=== PATIENT | female | born 1995 | race Caucasian/White ===

== ENCOUNTER 2020-04-09 17:39 | Emergency (ER) | payer OTHER ==
[~2020-04-09] VITALS: Ht 167.6 cm; Wt 63.6 kg
[2020-04-09 17:48] VITALS: TEMP 98.9
[2020-04-09 18:17] LABS: PH 6 (5-8); SQUAMOUS EPITHELIAL 0-2 /hpf; URINE APPEARANCE Clear; URINE BACTERIA Rare /hpf; URINE BILIRUBIN Negative (NEGATIVE); URINE BLOOD 1+ (NEGATIVE); URINE COLOR Straw; URINE GLUCOSE Negative (NEGATIVE); URINE KETONE 1+ (NEGATIVE); URINE LEUKOCYTE ESTERASE Negative (NEGATIVE); URINE NITRATE Negative (NEGATIVE); URINE PROTEIN(semi-quant) Negative (NEGATIVE); URINE RBC 0-2 /hpf; URINE UROBILINOGEN Negative (NEGATIVE); URINE WBC None Seen /hpf
[2020-04-09 18:18] LABS: COLLECTION METHOD CLEAN CATCH
[2020-04-09 18:39] LABS: BASO % 0.4 % (0.0-2.0); EOS # 0.1 (0.0-0.7); GRAN # 6.3 (1.4-6.5); GRAN % 63.5 % (42.2-75.2); HEMATOCRIT 41.1 % (37.0-47.0); HEMOGLOBIN 14.1 g/dl (12.5-16.0); LYMPH # 2.8 (1.2-3.4); LYMPH % 28.1 % (20.0-51.0); MEAN CELL VOLUME 92 fl (80.0-100.0); MEAN CORPUSCULAR HEMOGLOBIN 31 pg (27.0-31.0); MEAN CORPUSCULAR HGB CONC 34 g/dl (33.0-37.0); MEAN PLATELET VOLUME 9.8 fl (7.4-10.4); MONO # 0.7 (0.1-0.6); MONO % 6.8 % (1.7-9.3); PLATELET COUNT 258 K/mm3 (130-400); RED BLOOD COUNT 4.49 M/mm3 (4.10-5.30); REDCELL DISTRIBUTION WIDTH-CV 11.4 % (11.5-14.5)
[2020-04-09 18:50] LABS: BILIRUBIN,TOTAL 0.4 mg/dL (0.0-1.0); C-REACTIVE PROTEIN 0.8 mg/dL (0.0-0.9); CALCIUM 9.8 mg/dL (8.4-10.2); CREATININE, serum 0.94 (0.52-1.25); POTASSIUM 3.7 mmol/L (3.4-5.0); TOTAL PROTEIN 8.5 gm/dL (6.4-8.2)
[2020-04-09 21:45] VITALS: BP 116/70; PULSE 78
== END 2020-04-09 21:40 | disposition home or self-care (01) ==
LOC: COL.ER 17:39
PROVIDERS: Nurse Practitioner Primary Care
DX: R10.31 Right lower quadrant pain (principal); Z32.02 Encounter for pregnancy test, result negative
CPT/HCPCS: Q9967

== ENCOUNTER → 2023-11-16 | Outpatient (CLI) | payer OTHER | LOC: DIA.ED 08:37 | DX: O24.419 Gestational diabetes mellitus in pregnancy, unspecified control (principal) ==

== ENCOUNTER 2024-02-23 12:13 | Inpatient (IN) | payer OTHER ==
[~2024-02-23] VITALS: Ht 167.6 cm; Wt 72.7 kg
[2024-02-23] VITALS (40 sets, daily range): BP systolic 12–147; BP diastolic 57–92; PULSE 64–115; TEMP 97.7–98.4
[2024-02-23] MEDS ORDERED: LR 1,000 ML IV SCH (12:45)
[2024-02-23] MEDS ORDERED: LR & Oxytocin 500 ML IV SCH (12:45)
[2024-02-23] MEDS ORDERED: ROPivacaine PF 0.2% 200 ML IV ONE (12:57)
[2024-02-23] MEDS ORDERED: Lidocaine PF 2% (20 MG/ML) 5 ML VIAL ONE (13:06)
[2024-02-23 13:13] LABS: BASO % 0.4 % (0.0-2.0); EOS # 0.1 K/mm3 (0.0-0.7); EOS % 1.3 % (0.0-4.0); GRAN # 7.2 K/mm3 (1.4-6.5); GRAN % 66.6 % (42.2-75.2); HEMOGLOBIN 13.2 g/dl (12.5-16.0); LYMPH # 2.3 K/mm3 (1.2-3.4); LYMPH % 21.4 % (20.0-51.0); MEAN CELL VOLUME 96 fl (80.0-100.0); MEAN CORPUSCULAR HEMOGLOBIN 34 pg (27-31); MEAN CORPUSCULAR HGB CONC 36 g/dl (33.0-37.0); MEAN PLATELET VOLUME 11.3 fl (7.4-10.4); MONO # 1.1 K/mm3 (0.1-0.6); MONO % 9.7 % (1.7-9.3); PLATELET COUNT 178 K/mm3 (130-400); RED BLOOD COUNT 3.84 M/mm3 (4.10-5.30); REDCELL DISTRIBUTION WIDTH-CV 12.5 % (11.5-14.5)
[2024-02-23 13:14] LABS: HEMATOCRIT 36.8 % (37.0-47.0)
--- NOTE | 2024-02-23 13:41 | NUR ---
1220 PATIENT HERE FOR COMPLAINTS OF LEAKING FLUID SINCE 11 AM THIS MORNING. EFM ON FHT 130 BABY VERY ACTIVE. CONTRACTIONS 2 MIN APART AND PALPATE FRIM. PATIENT HAS TO BREATH THROUGH EACH CONTRACTIONS. ASSESSMENT COMPLETED, SVE /-1 AMNIOTRACE POSITIVE WITH A GUSH OF CLEAR FLUID NOTED. DR DIAZ CALLED AND ORDERS TO ADMIT PATIENT FOR SROM/LABOR.
--- NOTE | 2024-02-23 13:44 | NUR ---
1300 NOAH FOSTER CALLED TO COME FOR EPIDURAL PLACEMENT.
[2024-02-23] MEDS ORDERED: Naloxone 0.4 MG/ML VIAL IV PRN ×2 (13:45→21:45)
[2024-02-23] MEDS ORDERED: Ondansetron 4 MG/2 ML VIAL IV PRN (13:45)
[2024-02-23] MEDS ORDERED: ePHEDrine 50 MG/10 ML VIAL IV PRN (13:45)
[2024-02-23] MEDS ORDERED: diphenhydrAMINE 25 MG CAP PO PRN (13:45)
[2024-02-23] MEDS ORDERED: diphenhydrAMINE 50 MG/ML 1 ML VIAL IV PRN (13:45)
--- NOTE | 2024-02-23 13:46 | NUR ---
1310 PATIENT SITS UP ON EDGE OF BED FOR EPIDURAL PLACEMENT AT THIS TIME. GETTER FILLER AT BEDSIDE AND TALKS WITH PATIENT AND . PATIENT TOLERATES PLACEMENT WELL, SEE ALL GETTER FILLER NOTES FOR QUESTIONS AND VITAL SIGNS
--- NOTE | 2024-02-23 14:18 | NUR ---
1405 3 POSITION CHANGES WITH TWO EPIDURAL BOLUS DOSES ATTEMPTED. PATIENT REPORTS NONADEQUATE PAIN RELIEF. PATIENT STATUS DISCUSSED WITH KRISTIN GARCIA ON UNIT. OPTIONS DISCUSSED WITH PATIENT.URBAN REDEVELOPMENT SPECIALIST AND PATIENT IN AGREEANCE TO REPLACE EPIDRUAL 1410 KRISTIN COY AT BEDSIDE. EPIDURAL CATHETER REMOVED. PATIENT SETUP FOR NEW EPIDURAL. 1418 SINGLE SHOT. 1425 PATIENT ASSISTED BACK TO WEDGE LEFT POSITION IN BED. 1440 PATIENT REPORTS INCREASED PAIN RELIEF AND THAT LABOR DISCOMFORT IS NOW TOLERABLE.
--- NOTE | 2024-02-23 20:18 | NUR ---
DR DIAZ INFORMED PT IS COMPLETE AND +2 STATION.PT CAN START PUSHING NOW. 2020 ALBERTS CATH REMOVED. PT INSTRUCTED ON PUSHING.
--- NOTE | 2024-02-23 20:20 | NUR ---
PT PUSHING WITH CONTRACTIONS. 2047 DR ELLIS RAMIREZ IN ROOM FOR DELIVERY. 2049 NURSERY NURSER NOAH MCCONNELL.
[2024-02-23] MEDS ORDERED: traZODone 50 MG TAB PO PRN (21:00)
--- NOTE | 2024-02-23 21:10 | NUR ---
VAG DLEIVERY MALE . BABY PLACED ON MOMS ABD, DRIED AND STIMULATED. 2113 PLACENTA DELIVERED INTACT. PITOCIN STARTED AT 333 MU/MIN VIA PUMP. DR ELLIS RAMIREZ REPAIRING 2 DEGREE LACERATION. [address] TO PERINEUM.
[2024-02-23] MEDS ORDERED: Witch Hazel 50% Pads Bulk TUB TP PRN (21:45)
[2024-02-23] MEDS ORDERED: Magnes Hydrox (MOM) 80 MG/ML 30 ML CUP PO PRN (21:45)
[2024-02-23] MEDS ORDERED: Measles/Mumps/Rubella Virus Vaccine Live w Diluent 0.5 ML VIAL SQ SCH (21:45)
[2024-02-23] MEDS ORDERED: Ibuprofen 800 MG TAB PO SCH (21:45)
[2024-02-23] MEDS ORDERED: Loratadine 10 MG TAB PO PRN (21:45)
[2024-02-23] MEDS ORDERED: Tdap Vaccine 0.5 ML SYRINGE IM SCH (21:45)
[2024-02-23] MEDS ORDERED: Phenylephrine/Mineral Oil/Petrolatum 57 GM TUBE RC PRN (21:45)
[2024-02-23] MEDS ORDERED: Acetaminophen 500 MG TAB PO SCH (21:45)
[2024-02-23] MEDS ORDERED: Mag/Al Hydrox/Simeth Susp 30 ML CUP PO PRN (21:45)
[2024-02-23] MEDS ORDERED: oxyCODONE 5 MG TAB PO PRN (22:00)
[2024-02-23] MEDS ORDERED: Morphine 4 MG/ML VIAL IV PRN (22:00)
[2024-02-24 02:45] VITALS: BP 120/68; PULSE 78; TEMP 98.3
--- NOTE | 2024-02-24 03:00 | NUR ---
PT AMB TO BR TO VOID. PERICARE DONE. PANTIES ON PAD AND GOWN CHANGED.TRANSFERED TO ROOM 208 VIA WHEEL CHAIR. AND BABY FOLLOWED. REPORT GIVEN TO MARGARITA MANRIQUE
[2024-02-24 04:54] VITALS: BP 124/82; PULSE 79; TEMP 98.2
[2024-02-24 07:15] VITALS: BP 120/81; PULSE 91
[2024-02-24] MEDS ORDERED: Sennosides/Docusate 8.6-50 MG TAB PO SCH (08:00)
--- NOTE | 2024-02-24 09:28 | NUR ---
Initial visit; Nurse tending mom, Integrated Marketing Manager offered congratulations and God's blessings to parents and thanked them [facility] and let them know Integrated Marketing Manager is available to them.
[2024-02-24] MEDS ORDERED: IBU800 M1 PO (13:29)
[2024-02-24 17:47] VITALS: BP 119/84; PULSE 85
[2024-02-24] MEDS ORDERED: Rho(D) Imm Globulin 1,500 UNITS (300 MCG)/2 ML SYRINGE IV\\IM SCH (18:00)
[2024-02-24 21:00] VITALS: BP 111/64; PULSE 74; TEMP 97.8
[2024-02-25 09:00] VITALS: BP 131/80; PULSE 100; TEMP 98.1
--- NOTE | 2024-02-25 10:30 | NUR ---
DISCHARGE TEACHING COMPLETED. EDUCATED ON FOLLOW UP APPOINTMENT AND PRESCRIPTION. QUESTIONS INVITED AND ANSWERED.
== END 2024-02-25 12:00 | disposition home or self-care (01) | DRG 807 ==
LOC: LDRO 12:13 → OB 12:44 → LDR 12:44 → OB 02-24 01:54
PROVIDERS: ADMIT Student in an Organized Health Care Education/Training Program
PROC: 10E0XZZ Delivery of Products of Conception, External Approach (ICD-10-PCS; principal; 2024-02-23)
PROC: 0KQM0ZZ Repair Perineum Muscle, Open Approach (ICD-10-PCS; 2024-02-23)
PROC: 3E033VJ Introduction of Other Hormone into Peripheral Vein, Percutaneous Approach (ICD-10-PCS; 2024-02-23)
DX: O36.63X0 Maternal care for excessive fetal growth, third trimester, not applicable or unspecified (principal); Z37.0 Single live birth; O99.284 Endocrine, nutritional and metabolic diseases complicating childbirth; O24.425 Gestational diabetes mellitus in childbirth, controlled by oral hypoglycemic drugs; Z3A.38 38 weeks gestation of pregnancy; O70.1 Second degree perineal laceration during delivery; O26.893 Other specified pregnancy related conditions, third trimester
CPT/HCPCS: J2405; J2791; J2795; J7120